=== PATIENT | male | born 1995 | race African-American/Black ===

== ENCOUNTER 2023-08-23 23:45 | Emergency (ER) | payer MEDICAID, OTHER ==
[~2023-08-23] VITALS: Ht 188 cm; Wt 136.1 kg
[2023-08-24 00:15] VITALS: BP_SYST 141; PULSE 86; RESP 17; TEMP 97.9; O2SAT 98
[2023-08-24] MEDS ORDERED: HYDROcodone/ACETAMIN 5-325 MG TAB (NORCO/ VICODIN) PO ONE ×2 (00:30→03:45)
[2023-08-24] MEDS ORDERED: IBUP-1969 PO (03:28)
[2023-08-24] MEDS ORDERED: HYDR-3921 PO (03:49)
[2023-08-24 04:18] VITALS: BP_SYST 133; PULSE 76; RESP 18; TEMP 98.4; O2SAT 98
== END 2023-08-24 04:18 | disposition home or self-care (01) ==
LOC: SED 23:45
DX: S60.221A Contusion of right hand, initial encounter (principal); Z79.899 Other long term (current) drug therapy; Y04.0XXA Assault by unarmed brawl or fight, initial encounter; Y93.89 Activity, other specified; Y92.89 Other specified places as the place of occurrence of the external cause; Y99.8 Other external cause status
CPT/HCPCS: 99283